=== PATIENT | female | born 1955 | race Caucasian/White ===

== ENCOUNTER 2019-03-02 09:22 | Day surgery (SDC) | payer OTHER ==
[~2019-03-02] VITALS: Ht 152.4 cm; Wt 69.9 kg
--- NOTE | 2019-03-02 10:23 | PREAC ---
Date/Time of Note Date/Time of Note DATE: 03/02/19 TIME: 10:21 Anesthesia Eval and Record Evaluation Time Pre-Procedure Interview DATE: 03/02/19 TIME: 10:21 Age 63 Sex female NPO: 8 hrs Preoperative diagnosis GERD, POSITIVE OCCULT Planned procedure EGD AND COLONOSCOPY Past Medical History Past Medical History: Includes Pulm: Asthma GI: GERD Surgery & Anesthesia Issues No known issue Meds Anticoagulation: No Beta Chema within 24 hr: No Reason Beta Chema not given: Pt. not on B-Chema Reported Medications Montelukast Sodium* (Singulair*) 10 Mg Tablet, 20 MG PO QHS, #30 TAB 03/02/19 Fluticasone-Vilanterol (Breo Ellipta Inhaler) 100-25 Mcg/Actuation Aer.pow.ba, 1 PUFF INHALATION DAILY, #1 INHALER 03/02/19 [Ventolin Inhaler] No Conflict Check 03/02/19 Omeprazole* (Omeprazole*) 20 Mg Capsule.dr, 20 MG PO DAILY, #30 CAP 03/02/19 Meds reviewed: Yes Allergies Coded Allergies: No Known Drug Allergies (Verified Allergy, Unknown, 03/02/19) Allergies Reviewed: Yes Labs/Studies Labs Reviewed: Other (NONE ) test: N/A Pre-procedure Exam Airway: Adequate mouth opening, Adequate thyromental dist Mallampati: Mallampati II ASA Physical Status ASA physical status: 2 Emergency: None Planned Anesthetic General/MAC: MAC, TIVA Planned Pain Management Parenteral pain med Pre-operative Attestations Prior to commencing anesthesia and surgery, the patient was re-evaluated, there was verification of: *The patient's identity *The results of appropriate recent lab work and preoperative vital signs *The above evaluation not changing prior to induction *Anesthetic plan, risk benefits, alternative and complications discussed with patient/family; questions answered; patient/family understands, accepts and wishes to proceed. LARRY RASMUSSEN March 02, 2019 10:23
[2019-03-02 11:02] VITALS: Ht 152.4 cm; Wt 69.9 kg
[2019-03-02] MEDS ORDERED: MONT10TA21 PO (11:16)
[2019-03-02] MEDS ORDERED: OMEP20CA16 PO (11:16)
[2019-03-02] MEDS ORDERED: FLUT1AER INHALATION (11:16)
[2019-03-02] MEDS ORDERED: VENTOLIN INHALER (11:16)
[2019-03-02] MEDS ORDERED: LIDOCAINE 100 MG SYRINGE ONE (11:19)
[2019-03-02] MEDS ORDERED: PROPOFOL 40 ML ONE (11:19)
[2019-03-02 11:26] VITALS: BP 155/74; PULSE 73; RESP 21
--- NOTE | 2019-03-02 12:24 | PAC ---
Date/Time of Note Date/Time of Note DATE: 03/02/19 TIME: 12:24 Post-Anesthesia Notes Post-Anesthesia Note Last documented vital signs Vital Signs Date Temp Pulse Resp B/P (MAP) Pulse Ox O2 O2 Flow FiO2 Time Delivery Rate 03/02/19 96.6 73 21 155/74 96 Room Air 11:26 (101) Activity: WNL Respiratory function: WNL Cardiovascular function: WNL Mental status: Baseline Pain reasonably controlled: Yes Hydration appropriate: Yes Nausea/Vomiting absent: Yes ULISES BARTLETT March 02, 2019 12:24
--- NOTE | 2019-03-02 12:26 | PREAC ---
Date/Time of Note Date/Time of Note DATE: 03/02/19 TIME: 12:25 Anesthesia Eval and Record Evaluation Time Pre-Procedure Interview DATE: 03/02/19 TIME: 12:25 Age 63 Sex female NPO: 8 hrs Preoperative diagnosis GERD, POSITIVE OCCULT Planned procedure EGD / colonoscopy Past Medical History Past Medical History: Includes Pulm: Asthma GI: GERD Surgery & Anesthesia Issues No known issue Meds Anticoagulation: No Beta Chema within 24 hr: No Reason Beta Chema not given: Pt. not on B-Chema Reported Medications Montelukast Sodium* (Singulair*) 10 Mg Tablet, 20 MG PO QHS, #30 TAB 03/02/19 Fluticasone-Vilanterol (Breo Ellipta Inhaler) 100-25 Mcg/Actuation Aer.pow.ba, 1 PUFF INHALATION DAILY, #1 INHALER 03/02/19 [Ventolin Inhaler] No Conflict Check 03/02/19 Omeprazole* (Omeprazole*) 20 Mg Capsule.dr, 20 MG PO DAILY, #30 CAP 03/02/19 Meds reviewed: Yes Allergies Coded Allergies: No Known Drug Allergies (Verified Allergy, Unknown, 03/02/19) Allergies Reviewed: Yes Labs/Studies Labs Reviewed: Other (NA) test: N/A Pre-procedure Exam Last vitals Vital Signs Date Temp Pulse Resp B/P (MAP) Pulse Ox O2 O2 Flow FiO2 Time Delivery Rate 03/02/19 96.6 73 21 155/74 96 Room Air 11:26 (101) Airway: Adequate mouth opening Mallampati: Mallampati II Teeth: Normal Lung: Normal Heart: Normal ASA Physical Status ASA physical status: 2 Emergency: None Planned Anesthetic General/MAC: MAC Pre-operative Attestations Prior to commencing anesthesia and surgery, the patient was re-evaluated, there was verification of: *The patient's identity *The results of appropriate recent lab work and preoperative vital signs *The above evaluation not changing prior to induction *Anesthetic plan, risk benefits, alternative and complications discussed with patient/family; questions answered; patient/family understands, accepts and wishes to proceed. ULISES BARTLETT March 02, 2019 12:26
[2019-03-02 12:56] VITALS: BP 145/73; PULSE 82; RESP 24
== END 2019-03-02 12:37 | disposition home or self-care (01) ==
LOC: GIL 09:22
PROVIDERS: ATTEND Internal Medicine Gastroenterology
DX: K31.7 Polyp of stomach and duodenum (principal); D12.3 Benign neoplasm of transverse colon; K64.8 Other hemorrhoids; K64.4 Residual hemorrhoidal skin tags; K21.9 Gastro-esophageal reflux disease without esophagitis
CPT/HCPCS: 43239; 45385; 88305; 88312; J2001; Z7610